=== PATIENT | female | born 1950 | race Caucasian/White ===

== ENCOUNTER 2017-04-07 13:31 | Emergency (ER) | payer OTHER ==
[~2017-04-07] VITALS: Ht 167.6 cm; Wt 95.0 kg
[2017-04-07 13:36] VITALS: Ht 167.6 cm; Wt 95.0 kg
[2017-04-07] MEDS ORDERED: OXYCODONE HCL IR 5 MG TAB (IMMEDIATE RELEASE) PO STA (14:07)
[2017-04-07] MEDS ORDERED: CLIN300C2 PO (14:28)
[2017-04-07] MEDS ORDERED: BIMA0.01 OP (14:28)
[2017-04-07] MEDS ORDERED: CALC500C3 PO (14:28)
[2017-04-07] MEDS ORDERED: CEPH500C2 PO (14:28)
[2017-04-07] MEDS ORDERED: [UNRECOGNIZED DRUG - CODE] PO (14:28)
[2017-04-07] MEDS ORDERED: LORA-741 PO ×3 (14:28→15:19)
[2017-04-07] MEDS ORDERED: FLUT0.15 NAE (14:28)
[2017-04-07] MEDS ORDERED: MELO15TA4 PO (14:28)
[2017-04-07] MEDS ORDERED: MULT-506 PO (14:28)
[2017-04-07] MEDS ORDERED: ZNTT/150 PO (14:28)
[2017-04-07] MEDS ORDERED: OPTIRAY 320 IV PRN (14:30)
[2017-04-07 14:51] LABS: BASO % 0.5 %; BASO ABS # 0.04 K/uL (0-0.2); COMPLETE YES; EOS % 0.8 %; HEMATOCRIT 45.9 % (37-47); IG% 0.3 %; LYMPH % 21.2 %; LYMPH ABS # 1.64 K/uL (1.2-3.4); MEAN CELL VOLUME 91.6 fL (80-100); MEAN CORPUSCULAR HEMOGLOBIN 29.5 pg (25-34); MEAN CORPUSCULAR HGB CONC 32.2 g/dl (32-36); MEAN PLATELET VOLUME 10.7 fL (7.4-10.4); MONO % 6.2 %; PLATELET COUNT 233 K/uL (130-400); RED BLOOD COUNT 5.01 M/uL (4.2-5.4); WHITE BLOOD COUNT 7.73 K/uL (4.8-10.8)
--- NOTE | 2017-04-07 15:04 | EMERGENCY ROOM VISIT NOTE ---
History Report prepared by Alex: Mina Pimentel Under the Supervision of: Dr. Juan Tian D.O. First contact with patient: 13:51 Chief Complaint: FACIAL PAIN/INJURY Stated Complaint: LEFT FACIAL PAIN History of Present Illness The patient is a 66 year old female who presents to the Emergency Room with complaints of persistent left sided facial pain beginning four days ago. She also complains of left sided facial swelling and a headache above her left eye. She states that her pain and swelling radiates into her neck. The patient was seen by her dentist for her symptoms four days ago, an oral surgeon three days ago and an ENT specialist two days ago. She was seen by ENT two days ago. She states that she was found to have a blocked salvatory gland. The patient states that she had a large amount of pus drained by her dentist. She was started on Clindamycin by her dentist. She notes that her pain and swelling is worse when she wakes up in the morning. Pt denies eye pain, ear pain, fevers, chest pain, shortness of breath, nausea, vomiting, diarrhea, pain with urination, and melena. The patient also complains of constant back pain beginning 1.5 years ago. She states that she takes Meloxicam for her symptoms. She was told that she was diagnosed with spinal stenosis but does not believe she had any testing. The patient denies any numbness, or weakness in legs. She states that her back pain is worsened while walking because away with rest. Pain has been present for the past 1.5 years and unchanged. Source of History: patient Onset: Four days ago Position: head (left face) Quality: other (pain and swelling) Timing: other (persistent) Associated Symptoms: + headache (above left eye), + back pain, No fevers, No nausea, No vomiting, No weakness, No numbness Note: Pt denies eye pain, She also complains of pain and swelling into her left neck. Review of Systems See HPI for pertinent positives & negatives. A total of 10 systems reviewed and were otherwise negative. Past Medical & Surgical Medical Problems: (1) Anxiety (2) Back pain (3) Depression (4) Glaucoma Surgical Problems: (1) H/O dilation and curettage Family History No pertinent family history stated. Social History Smoking Status: Never Smoker Marital Status: Occupation Status: retired Current/Historical Medications Scheduled Bimatoprost (Lumigan), 1 DROPS OP HS Calcium Carbonate (Tums), 1 DOSE PO UD Cephalexin Monohydrate (Keflex), 500 MG PO Q8 Clindamycin Hcl (Cleocin), 300 MG PO BID Cod Liver Oil (Cvs Cod Liver Oil), 1 CAP PO DAILY Fluticasone Propionate (Nasal) (Flonase Allergy Relief), 2 SPRAYS ADIN DAILY Lorazepam (Ativan), 0.25 MG PO TID Lorazepam (Ativan), 0.5 MG PO QPM Meloxicam (Mobic), 15 MG PO DAILY Multivitamin (Multivitamin), 1 TAB PO DAILY Scheduled PRN Lorazepam (Ativan), 0.5 MG PO TID PRN for Anxiety Ranitidine (Zantac), 150 MG PO DAILY PRN for HEARTBURN Allergies Coded Allergies: Aspirin (Unverified Allergy, Intermediate, SWELLING, HIVES, ANXIETY, DEPRESSION, 04/07/17) Gabapentin (Unverified Allergy, Intermediate, HIVES, SWELLING, ANXIETY, DEPRESSION, 04/07/17) PATIENT THINKS THIS INTERACTED WITH ATIVAN? Lamotrigine (Unverified Allergy, Intermediate, HIVES, SWELLING, ANXIETY, ) PATIENT THINKS COULD HAVE INTERACTED WITH ATIVAN? Nitrofurantoin (Unverified Allergy, Intermediate, HIVES, SWELLING, ANXIETY , DEPRESSION, 04/07/17) Penicillins (Unverified Allergy, Intermediate, SWELLING, HIVES, 04/07/17) Physical Exam Vital Signs Date Time Temp Pulse Resp B/P (MAP) Pulse Ox O2 Delivery O2 Flow Rate FiO2 04/07/17 16:49 36.7 69 16 131/79 96 04/07/17 16:48 69 16 131/79 96 Room Air 04/07/17 13:36 36.7 71 16 146/79 96 Room Air Physical Exam GENERAL: alert, sitting up in bed, anxious, non-toxic EYE EXAM: normal conjunctiva, PERRL and EOM's intact OROPHARYNX: Lips, buccal mucosa, and tongue normal and mucous membranes are moist. Swelling in the submandibular region over the left salivary gland which is firm. Small amount of green purulent discharged expressed. No Richie's angina. NECK: supple, no nuchal rigidity. 4 cm swollen nodule in the left anterior cervical chain which is tender to palpation. LUNGS: Clear to auscultation. Normal chest wall mechanics HEART: no murmurs, S1 normal and S2 normal ABDOMEN: abdomen soft, non-tender, normo-active bowel sounds, no masses, no rebound or guarding. BACK: Back is symmetrical on inspection and there is no deformity. Acute reproducible tenderness over the right lower lumbar SI joint. SKIN: no rashes and no bruising UPPER EXTREMITIES: upper extremities are grossly normal. LOWER EXTREMITIES: No pitting edema. Extension/flexion hip, knee, ankle and EHL 5/5 bilaterally. Sensation intact. NEURO EXAM: Normal sensorium, cranial nerves II-XII grossly intact, normal speech, no gross weakness of arms, no gross weakness of legs. Medical Decision & Procedures ER Provider Diagnostic Interpretation: Radiology results as stated below per my review and the radiologist's interpretation: CT OF THE NECK WITH CONTRAST FINDINGS: Visualized portions of the intracranial contents are unremarkable. Orbits are unremarkable. There is mild polypoid mucosal thickening of the sinuses. There is trace fluid within the right mastoid air cells. The parotid and right submandibular glands are normal. There is asymmetric enlargement with mild infiltration adjacent to the left submandibular gland. This reflects the palpable abnormality. No enlarged cervical lymph nodes are present. Note is made of a 0.8 x 0.5 cm calcification within the anterior aspect of the floor of the mouth which suggests a distal left submandibular duct calculus. There is a suspected additional 0.4 x 0.2 cm calculus within the proximal aspect of the left submandibular duct. The epiglottis is normal. No mucosal lesions are defined although these may be occult by CT. Lung apices are clear. No suspicious osseous lesions are present. IMPRESSION: Left submandibular gland sialoadenitis likely due to an 8 mm x 5 mm calculus within the distal left submandibular duct. Additional smaller calculus within the proximal left submandibular duct. Electronically signed by: Jesus Ruiz M.D. LUMBAR SPINE RADIOGRAPHS FINDINGS: Alignment of the lumbar spine is anatomic. There is no acute fracture. There is moderate disc space narrowing with osteophytosis and vacuum disc phenomenon at L5-S1. No fracture or suspicious lesion is present. Otherwise, there is mild to moderate multilevel degenerative disc disease. There is moderate multilevel facet arthrosis. A 4 mm left abdominal calcification is equivocal for a left renal calculus. Bowel gas pattern is normal. IMPRESSION: 1. No acute lumbar spine fracture. 2. Moderate disc space narrowing at L5-S1. Moderate multilevel degenerative disc disease and facet arthrosis. Electronically signed by: Jesus Ruiz M.D. Laboratory Results 04/07/17 14:40 Red Blood Count 5.01, Mean Corpuscular Volume 91.6, Mean Corpuscular Hemoglobin 29.5, Mean Corpuscular Hemoglobin Concent 32.2, Mean Platelet Volume 10.7, Neutrophils (%) (Auto) 71.0, Lymphocytes (%) (Auto) 21.2, Monocytes (%) (Auto) 6.2, Eosinophils (%) (Auto) 0.8, Basophils (%) (Auto) 0.5, Neutrophils # (Auto) 5.49, Lymphocytes # (Auto) 1.64, Monocytes # (Auto) 0.48, Eosinophils # (Auto) 0.06, Basophils # (Auto) 0.04 04/07/17 14:40 Test 04/07/17 14:40 White Blood Count 7.73 K/uL (4.8-10.8) Red Blood Count 5.01 M/uL (4.2-5.4) Hemoglobin 14.8 g/dL (12.0-16.0) Hematocrit 45.9 % (37-47) Mean Corpuscular Volume 91.6 fL (80-100) Mean Corpuscular Hemoglobin 29.5 pg (25-34) Mean Corpuscular Hemoglobin Concent 32.2 g/dl (32-36) Platelet Count 233 K/uL (130-400) Mean Platelet Volume 10.7 fL (7.4-10.4) Neutrophils (%) (Auto) 71.0 % Lymphocytes (%) (Auto) 21.2 % Monocytes (%) (Auto) 6.2 % Eosinophils (%) (Auto) 0.8 % Basophils (%) (Auto) 0.5 % Neutrophils # (Auto) 5.49 K/uL (1.4-6.5) Lymphocytes # (Auto) 1.64 K/uL (1.2-3.4) Monocytes # (Auto) 0.48 K/uL (0.11-0.59) Eosinophils # (Auto) 0.06 K/uL (0-0.5) Basophils # (Auto) 0.04 K/uL (0-0.2) RDW Standard Deviation 43.4 fL (36.4-46.3) RDW Coefficient of Variation 12.9 % (11.5-14.5) Immature Granulocyte % (Auto) 0.3 % Immature Granulocyte # (Auto) 0.02 K/uL (0.00-0.02) Anion Gap 6.0 mmol/L (3-11) Est Creatinine Clear Calc Drug Dose 56.8 ml/min Estimated GFR () 59.7 Estimated GFR (Non- 51.5 BUN/Creatinine Ratio 9.4 (10-20) Calcium Level 9.8 mg/dl (8.5-10.1) Laboratory results per my review. Medications Administered Medications (Trade) Dose Ordered Sig/Jamaal Route Start Time Stop Time Status Last Admin Dose Admin Oxycodone HCl (Roxicodone Immediate Rel Tab) 5 mg NOW STAT PO 04/07/17 14:07 04/07/17 14:08 DC 04/07/17 14:27 5 MG ED Course ED COURSE: Vital signs were reviewed and showed hypertension The patients medical record was reviewed The above diagnostic studies were performed and reviewed. ED treatments and interventions as stated above. 1353: The patient was evaluated in room A9B. A complete history and physical examination was performed. 1407: Ordered Roxicodone Immediate Rel Tab 5 mg PO. 1630: Upon reevaluation, the patient is resting comfortably. I discussed my findings with the patient and she understands and agrees with the treatment plan. Based on the patients age, coexisting illnesses, exam and lab findings the decision to treat as an outpatient was made. The patient remained stable while under my care. The patient appeared well at the time of discharge. Medical Decision The patient is a 66 year old female who presents to the ED with complaints of left sided facial swelling and pain. Differential diagnoses include but are not limited to: Richie's angina, abscess, retropharyngeal abscess, pharyngeal abscess, clogged salivary gland, periapical abscess, and clogged parotid gland. Blood Pressure Screening: The patient was found to have a slightly elevated blood pressure due to circumstances. I do not believe that the patient requires hypertension monitoring. Medication Reconciliation: I attest that I have personally reviewed the patient' s current medication list. Patient is a 66-year-old female who presents the ER for swelling of her salary gland on the left lower tongue. She is seen by ENT and oral maxillary facial surgery. She is on clindamycin. On exam and still able to express a small amount of purulent discharge. CT of the neck supports my physical findings. Vitals were unremarkable. She is able to eat and drink without difficulty. CBC and BMP were unremarkable. She did complain of chronic lower lumbar pain for the past 1.5 years. X-rays showed DJD. Patient is completely neurologically intact. Patient was discharged to follow-up with OMFS in 3-5 days. Discussed with Pt concerning signs and symptoms to watch out for. Pt was instructed to follow up with their PCP and discussed with the patient their option to return to the ED at anytime for persistent or worsening symptoms. The appropriate anticipatory guidance and out-patient management, including indications for return to the emergency department, were explained at length to the patient and understood. Impression Primary Impression: Sialoadenitis Additional Impression: Back pain Scribe Attestation The scribe's documentation has been prepared under my direction and personally reviewed by me in its entirety. I confirm that the note above accurately reflects all work, treatment, procedures, and medical decision making performed by me. Departure Information Dispostion Home / Self-Care Forms HOME CARE DOCUMENTATION FORM, IMPORTANT VISIT INFORMATION Patient Instructions ED Sublingual Gland Obstruction, My [facility] Additional Instructions Please follow up with your primary care doctor with in the next 24 hours. Any worsening of your symptoms, please return to the ED immediately. This includes total swallowing, trouble breathing, redness around your eyes, chest pain, short of breath or any other concerning signs or symptoms from your standpoint. Please follow up with ENT or oral maxillary facial surgery within the next 5 days. Please continue your antibiotics Please continue Motrin or Tylenol as needed for pain. Problem Qualifiers Additional Impression: Back pain Back pain location: back pain in unspecified location Chronicity: unspecified Back pain laterality: unspecified Qualified Codes: M54.9 - Dorsalgia, unspecified
[2017-04-07 15:13] LABS: BUN/CREATININE RATIO 9.4 (10-20); CALCIUM 9.8 mg/dl (8.5-10.1); CREATININE 1.1 mg/dl (0.60-1.20)
--- NOTE | 2017-04-07 15:35 | DIAGNOSTIC IMAGING REPORT ---
LUMBAR SPINE RADIOGRAPHS CLINICAL HISTORY: Low back pain. COMPARISON: None FINDINGS: Alignment of the lumbar spine is anatomic. There is no acute fracture. There is moderate disc space narrowing with osteophytosis and vacuum disc phenomenon at L5-S1. No fracture or suspicious lesion is present. Otherwise, there is mild to moderate multilevel degenerative disc disease. There is moderate multilevel facet arthrosis. A 4 mm left abdominal calcification is equivocal for a left renal calculus. Bowel gas pattern is normal. IMPRESSION: 1. No acute lumbar spine fracture. 2. Moderate disc space narrowing at L5-S1. Moderate multilevel degenerative disc disease and facet arthrosis. Electronically signed by: Jesus Ruiz M.D. 04/07/2017 3:34 PM Dictated Date/Time: 04/07/2017 3:32 PM
--- NOTE | 2017-04-07 16:09 | DIAGNOSTIC IMAGING REPORT ---
CT OF THE NECK WITH CONTRAST CT DOSE: 423.74 mGy.cm CLINICAL HISTORY: Left neck swelling. TECHNIQUE: Axial images of the neck were obtained following intravenous injection of 115 cc Optiray 320 IV. COMPARISON STUDY: None. FINDINGS: Visualized portions of the intracranial contents are unremarkable. Orbits are unremarkable. There is mild polypoid mucosal thickening of the sinuses. There is trace fluid within the right mastoid air cells. The parotid and right submandibular glands are normal. There is asymmetric enlargement with mild infiltration adjacent to the left submandibular gland. This reflects the palpable abnormality. No enlarged cervical lymph nodes are present. Note is made of a 0.8 x 0.5 cm calcification within the anterior aspect of the floor of the mouth which suggests a distal left submandibular duct calculus. There is a suspected additional 0.4 x 0.2 cm calculus within the proximal aspect of the left submandibular duct. The epiglottis is normal. No mucosal lesions are defined although these may be occult by CT. Lung apices are clear. No suspicious osseous lesions are present. IMPRESSION: Left submandibular gland sialoadenitis likely due to an 8 mm x 5 mm calculus within the distal left submandibular duct. Additional smaller calculus within the proximal left submandibular duct. Electronically signed by: Jesus Ruiz M.D. 04/07/2017 4:08 PM Dictated Date/Time: 04/07/2017 4:01 PM
[2017-04-07 16:49] VITALS: BP 131/79; PULSE 69; TEMP 36.7; O2SAT 96
== END 2017-04-07 16:50 | disposition home or self-care (01) ==
LOC: C.EDB 13:35 → C.EDA 16:50
DX: K11.20 Sialoadenitis, unspecified (principal); M54.9 Dorsalgia, unspecified; Z79.899 Other long term (current) drug therapy; F41.9 Anxiety disorder, unspecified; F32.9 Major depressive disorder, single episode, unspecified; H40.9 Unspecified glaucoma; G89.29 Other chronic pain

== ENCOUNTER → 2017-04-12 | Outpatient (CLI) | payer OTHER ==
[~2017-04-12] MED LIST: BIMA0.01 OP; CALC500C3 PO; CEPH500C2 PO; CLIN300C2 PO; FLUT0.15 NAE; LORA-741 PO; MELO15TA4 PO; MULT-506 PO; ZNTT/150 PO; [UNRECOGNIZED DRUG - CODE] PO
== END | disposition home or self-care (01) ==
LOC: C.PATHSPEC 10:55
PROVIDERS: ATTEND Dentist Oral and Maxillofacial Surgery
DX: K11.5 Sialolithiasis (principal)